=== PATIENT | male | born 1960 | race Caucasian/White ===

== ENCOUNTER 2017-06-12 06:08 | Emergency (ER) | payer OTHER ==
[~2017-06-12] VITALS: Ht 177.8 cm; Wt 98.0 kg
[~2017-06-12 06:08] MED LIST: ASPIRIN EC81 MG PO; HYDROCODON-ACE1 EA10 PO; LISINOPRIL5 MG PO; MIRALAX17 GM PO; PERCOCET 10-321 EACH PO; PROMETHAZINE HC25 M1 PO; PROSCAR5 MG PO; SIMVASTATIN10 MG PO
[2017-06-12] MEDS ORDERED: FLOMAX0.4 MG PO (06:17)
[2017-06-12] MEDS ORDERED: ZOFRAN4 MG PO (09:03)
[2017-06-12] MEDS ORDERED: MECLIZINE HCL25 M1 PO (09:03)
[2017-06-12] MEDS ORDERED: NASONEX17 GM NAS (09:03)
--- NOTE | 2017-06-12 17:05 | EKG ---
[facility] [address] [facility] [place], [place] [address] Signed Normal sinus rhythm Normal ECG No previous ECGs available Confirmed by ALAN DILL MD ([id number]) on 06/12/2017 5:04:53 PM Electronically Signed By: ALAN DILL MD 06/12/17 1705 PATIENT NAME: MIAN ALTAMIRANO Electrocardiogram DATE OF : 56 PHYSICIAN: ALAN DILL MD REPORT #: [id number] REPORT IS CONFIDENTIAL AND NOT TO BE RELEASED WITHOUT AUTHORIZATION
== END 2017-06-12 09:23 | disposition home or self-care (01) ==
LOC: ED 06:08
DX: H92.01 Otalgia, right ear (principal); I10 Essential (primary) hypertension; Z79.899 Other long term (current) drug therapy; Z90.49 Acquired absence of other specified parts of digestive tract
CPT/HCPCS: 70496; 71010; 80053; 84484; 85025; 93005; 93010; 96361; 96374; 99284; J2405; J7030; Q9967

== ENCOUNTER 2025-08-20 06:27 | Day surgery (SDC) | payer MEDICARE, OTHER ==
[~2025-08-20] VITALS: Ht 177.8 cm; Wt 120.0 kg
[~2025-08-20 06:27] MED LIST changes: +FLOMAX0.4 MG PO; +LACTATED RINGER'S 1,000 ML IV SCH; +LOSARTAN-HCTZ1 EAC1 PO; +MECLIZINE HCL25 M1 PO; +NASONEX17 GM NAS; +ZOCOR40 MG PO; +ZOFRAN4 MG PO
[2025-08-20 06:55] VITALS: BP 146/81
[2025-08-20] MEDS ORDERED: IBLOOD GLUCOSE TEST STRIP 1 EA TEST VI PRN (07:00)
[2025-08-20] MEDS ORDERED: LIDOCAINE HCL 1% 5 ML SDV INJ ONE (07:00)
[2025-08-20] MEDS ORDERED: LIDOCAINE HCL 2% 5 ML SDV ONE (08:30)
[2025-08-20] MEDS ORDERED: fentaNYL citrate 100 MCG/2 ML VIAL ONE (08:39)
--- NOTE | 2025-08-20 09:22 | NUR ---
08/20/25 0922 Katya Long 0910-PATIENT ARRIVED TO PACU ON RA RR EVEN. PATIENT REACTIVE TO VERBAL STIMULI VERY DROWSY LAYING LEFT LATERAL. ABDOMEN SOFT. IVF INFUSING. ENCOURAGED TO PASS GAS. 09-PATIENT AWAKE HOB ELEVATED REPOSITIONS SELF IN BED. RA 95% RR EVEN. 09-DR. BUENROSTRO AT BEDSIDE DENIES PAIN OR NAUSEA.
[2025-08-20 09:39] VITALS: BP 148/85
--- NOTE | 2025-08-20 13:46 | NUR ---
VISITED DURING SPIRITUAL CARE ROUNDS. PT IN OVERALL GOOD SPIRITS; NO IMMEDIATE NEEDS. CEREAL MAKER PROVIDED SUPPORTIVE PRESENCE, HOSPITALITY, PRAYER. PT EXPRESSED GRATITUDE.
--- NOTE | 2025-08-22 11:35 | PATH ---
[facility] [address] [place], [place] [address] Signed SPECIMEN(S): A COLON BIOPSY, 35 CM SPECIMEN SOURCE: A. COLON BIOPSY, 35 CM CLINICAL HISTORY: History of polyps, hemorrhoids, diverticulosis, pedunculated mass at 35 cm FINAL PATHOLOGIC DIAGNOSIS: Colon at 35 cm, biopsies: - Prominent intramucosal lymphoid aggregate with overlying hyperplastic change. - Negative for dysplasia or malignancy. DWS:[facility] MICROSCOPIC EXAMINATION: Histologic sections of all submitted blocks are examined by light microscopy. These findings, together with the gross examination, support the pathologic diagnosis. GROSS DESCRIPTION: The specimen, labeled and designated "Zach, colon biopsy, 35 cm," is received in formalin and consists of three german soft tissue fragments, ranging from 0.2-0.3 cm. Entirely submitted in (A1). VB (under the direct supervision of a pathologist) The Gross Description was prepared using a voice recognition system. The report was reviewed for accuracy; however, sound-alike word errors, addition and/or deletions may occur. If there is any question about this report, please contact Client Services. PERFORMING LABORATORY: Technical component was performed by [facility], [address] [place] [id number] (CLIA# [id number]). Professional interpretation was performed by [facility], [address] [place] [phone] (CLIA#: [id number]). Diagnostician: Jack Nichols MD Pathologist Electronically Signed 08/22/2025 Copies: PATIENT NAME: MIAN ALTAMIRANO PATHOLOGY DATE OF : 56 REPORT #: [id number] PHYSICIAN: [facility] PCP: ERNST CAR MD REPORT IS CONFIDENTIAL AND NOT TO BE RELEASED WITHOUT AUTHORIZATION [address] [address] Signed ~ PATIENT NAME: MIAN ALTAMIRANO PATHOLOGY DATE OF : 56 REPORT #: [id number] PHYSICIAN: [facility] PATHOLOG[facility] PCP: ERNST CAR MD REPORT IS CONFIDENTIAL AND NOT TO BE RELEASED WITHOUT AUTHORIZATION
== END 2025-08-20 09:45 | disposition home or self-care (01) ==
LOC: OPS 06:27 → DS 06:27 → OPS 08:40 → DS 08:40 → OPS 09:45 → DS 10:00
PROVIDERS: ATTEND Surgery
PROC: 3E0H8KZ Introduction of Other Diagnostic Substance into Lower GI, Via Natural or Artificial Opening Endoscopic (ICD-10-PCS; 2025-08-20)
PROC: 0DBN8ZX Excision of Sigmoid Colon, Via Natural or Artificial Opening Endoscopic, Diagnostic (ICD-10-PCS; principal; 2025-08-20 08:40)
DX: Z12.11 Encounter for screening for malignant neoplasm of colon (principal); K63.5 Polyp of colon; K57.30 Diverticulosis of large intestine without perforation or abscess without bleeding; Z86.0101 Personal history of adenomatous and serrated colon polyps; E78.5 Hyperlipidemia, unspecified; I10 Essential (primary) hypertension; Z88.8 Allergy status to other drugs, medicaments and biological substances; Z79.899 Other long term (current) drug therapy
CPT/HCPCS: 00811; J2003; J2704; J3010; J7121

== ENCOUNTER 2025-09-05 05:28 | Day surgery (SDC) | payer MEDICARE, OTHER ==
[~2025-09-05] VITALS: Ht 177.8 cm; Wt 121.0 kg
[~2025-09-05 05:28] MED LIST changes: +CEFAZOLIN SODIUM 3 GM in SODIUM CHLORIDE 0.9% 100 ML IV SCH; -LACTATED RINGER'S 1,000 ML IV SCH
[2025-09-05 05:59] VITALS: BP 155/80
--- NOTE | 2025-09-05 06:14 | NUR ---
IV STARTED LR AT TKO. BLOOD SUGER 117.
[2025-09-05] MEDS ORDERED: LIDOCAINE HCL 2% 5 ML SDV ONE (06:59)
[2025-09-05] MEDS ORDERED: IBLOOD GLUCOSE TEST STRIP 1 EA TEST VI PRN (07:00)
[2025-09-05] MEDS ORDERED: LIDOCAINE HCL 1% 5 ML SDV INJ ONE (07:00)
[2025-09-05] MEDS ORDERED: LACTATED RINGER'S 1,000 ML IV SCH (07:00)
--- NOTE | 2025-09-05 07:23 | NUR ---
PLANE TABLEMAN IN TO TALK WITH PT AND PT HAS BEEN UP TO BR.
[2025-09-05 15:36] VITALS: BP 120/79
--- NOTE | 2025-09-05 15:44 | NUR ---
09/05/25 Pricilla Tong Alimta 0830- PT PRESENTS TO PACU, SEMI LÓPEZ POSITION, NON REACTIVE TO STIMULUS. BREATHING EVEN AND NON LABORED, OPA IN PLACE, O2 AT 6L PER MASK. LR INFUSING TO RW IV. ABD SOFT, NON DISTENDED. ALL MONITORS IN PLACE. 0834- PT REACTIVE TO STIMULUS, FOLLOWS INSTRUCTIONS TO REMOVE OPA. O2 LEFT IN PLACE. NO SIGNS OF DISTRESS. REORIENTED TO TIME AND PLACE. 0839- PT MOVED TO ROOM, REPORTS 2/10 PAIN, TOLERABLE. 0850- PT DROWSY BUT CONVERSING WITH STAFF, NO SIGNS OF DISTRESS. 0856- PT UP TO SIDE OF BED, TOLERATING WELL. CALLED FOR A RIDE. PT TO GET DRESSED. 0905- PT VERBALIZED UNDERSTANDING OF INSTRUCTIONS. SALINE LOCK REMOVED, TIP INTACT, DRESSING APPLIED. PT TRANSFERRED TO WHEELCHAIR WITH STEADY GAIT, ALL BELONGINGS AND RX OUT WITH PT, NO SIGNS OF DISTRESS.
--- NOTE | 2025-09-09 11:25 | PATH ---
[facility] [address] [facility] [place] [address] Signed SPECIMEN(S): A COLON POLYP, 35 CM SPECIMEN(S): B COLON POLYP, 35 CM SPECIMEN SOURCE: A. COLON POLYP, 35 CM B. COLON POLYP, 35 CM CLINICAL HISTORY: Large broad-based pedunculated mass at 35 cm. Post: Pedunculated mass sigmoid colon. Rule out base of polyp 35 cm. FINAL PATHOLOGIC DIAGNOSIS: A. Colon polyp at 35 cm: - Polypoid colonic mucosa with hyperplastic features. B. Colon polyp at 35 cm: - Polypoid colonic mucosa with submucosal adipose tissue consistent with lipoma. JVR:clv MICROSCOPIC EXAMINATION: Histologic sections of all submitted blocks are examined by light microscopy. These findings, together with the gross examination, support the pathologic diagnosis. GROSS DESCRIPTION: A. The specimen, labeled and designated "Zach, A, 1. " and designated on the requisition "Colon polypectomy at 35 cm base," is received in formalin and consists of six german soft tissue fragments that measure 0.1-0.3 cm in greatest dimension. The specimen is entirely submitted in (A1). B. The specimen, labeled and designated "Zach, A, 2." and designated on the requisition "colon polypectomy, 35 cm, lipoma," is received in formalin and consists of three soft tissue fragments. Two are partially surfaced by a pink-german finely granular mucosa measuring 1.4 x 1.2 x 1.1 cm and 1.5 x 1.6 x 0.9 cm. These tissue fragments are arbitrarily inked blue and green. Serially sectioning reveals a yellow homogeneous cut surface. The third tissue fragment is 2.4 x 1.6 x 0.7 cm portion of yellow-german adipose tissue with a finely granular mucosa. The third tissue fragment is inked black and serially sectioned revealing a yellow homogeneous cut surface. The specimen PATIENT NAME: MIAN ALTAMIRANO PATHOLOGY DATE OF : 56 REPORT #: [id number] PHYSICIAN: [facility] PCP: ERNST CAR MD REPORT IS CONFIDENTIAL AND NOT TO BE RELEASED WITHOUT AUTHORIZATION [facility] [address] [place], [place] [address] Signed is entirely submitted in (B1-B3). FB (under the direct supervision of a pathologist) The Gross Description was prepared using a voice recognition system. The report was reviewed for accuracy; however, sound-alike word errors, addition and/or deletions may occur. If there is any question about this report, please contact Client Services. PERFORMING LABORATORY: Technical component was performed by [facility], [address] [place] [id number] (CLIA# [id number]). Professional interpretation was performed by [facility], [address] [place] [id number] (CLIA#: [id number]). Diagnostician: Bert Giles MD Pathologist Electronically Signed 09/09/2025 Copies: ~ PATIENT NAME: MIAN ALTAMIRANO PATHOLOGY DATE OF : 56 REPORT #: [id number] PHYSICIAN: BRENT KIM PCP: ERNST CAR MD REPORT IS CONFIDENTIAL AND NOT TO BE RELEASED WITHOUT AUTHORIZATION
== END 2025-09-05 09:05 | disposition home or self-care (01) ==
LOC: DS 05:28
PROVIDERS: ATTEND Surgery
PROC: 0DBN8ZZ Excision of Sigmoid Colon, Via Natural or Artificial Opening Endoscopic (ICD-10-PCS; principal; 2025-09-05 07:30)
DX: D12.5 Benign neoplasm of sigmoid colon (principal); I10 Essential (primary) hypertension; E78.5 Hyperlipidemia, unspecified; N40.0 Benign prostatic hyperplasia without lower urinary tract symptoms; G47.33 Obstructive sleep apnea (adult) (pediatric); Z79.899 Other long term (current) drug therapy; Z90.49 Acquired absence of other specified parts of digestive tract
CPT/HCPCS: 00811; 88305; J0688; J2003; J2704; J7121